=== PATIENT | male | born 1975 | race Caucasian/White ===

== ENCOUNTER 2016-11-19 23:14 | Emergency (ER) | payer OTHER ==
[2016-11-20] MEDS ORDERED: LORAZEPAM 2 MG/ML VIAL ONE (00:09)
== END 2016-11-20 03:20 | disposition home or self-care (01) ==
LOC: ER 23:14
DX: R07.89 Other chest pain (principal); F41.1 Generalized anxiety disorder; R06.4 Hyperventilation; I10 Essential (primary) hypertension
CPT/HCPCS: 36415; 71010; 80053; 82550; 83735; 84484; 85025; 85610; 85730; 93005; 96374